=== PATIENT | male | born 1960 | race Caucasian/White ===

== ENCOUNTER 2020-01-27 15:13 | Emergency (ER) | payer SELFPAY ==
[2020-01-27] MEDS ORDERED: MORPHINE SULFATE 10 MG/ML INJ IV ONE ×2 (15:37→19:12)
[2020-01-27] MEDS ORDERED: ONDANSETRON HCL INJ/PF 4 MG/2 ML SDV IV ONE (15:37)
--- NOTE | 2020-01-27 15:49 | RADIOLOGY REPORT (SQ) ---
EXAM DESCRIPTION: CHEST SINGLE VIEW IMAGES COMPLETED DATE/TIME: 01/27/2020 3:41 pm REASON FOR STUDY: trauma COMPARISON: 07/01/2010 EXAM PARAMETERS: NUMBER OF VIEWS: One view. TECHNIQUE: Single frontal radiographic view of the chest acquired. RADIATION DOSE: NA LIMITATIONS: None. FINDINGS: LUNGS AND PLEURA: Hyperexpansion. No pneumothorax. No consolidation or effusion. MEDIASTINUM AND HILAR STRUCTURES: No masses. Contour normal. HEART AND VASCULAR STRUCTURES: Heart normal in size. Normal vasculature. BONES: No acute findings. HARDWARE: None in the chest. OTHER: No radiopaque foreign bodies. IMPRESSION: COPD. No pneumothorax. No radiopaque foreign bodies. TECHNICAL DOCUMENTATION: JOB ID: [id number] 2010 [employer]- All Rights Reserved Reading location - IP/workstation name: [email or web address]
--- NOTE | 2020-01-27 15:58 | ER Document Report ---
ED General - General Chief Complaint: Laceration Stated Complaint: CHEST LACERATION Time Seen by Provider: 01/27/20 15:32 TRAVEL OUTSIDE OF THE [place] IN LAST 30 DAYS: No - HPI Notes: Patient is a 60-year-old male with no significant past medical history who presents with trauma to his chest. 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 Patient states he was wearing a leather apron which he thinks protected him. He does have a laceration to his anterior chest midline. Patient states he has some shortness of breath. He denies any other trauma. He is unsure when his last tetanus shot was. - Related Data Allergies/Adverse Reactions: No Known Allergies Allergy (Unverified 08/08/13 11:06) Past Medical History - General Information source: Patient - Social History Smoking Status: Current Every Day Smoker Chew tobacco use (# tins/day): No Frequency of alcohol use: 2-3 beers daily Drug Abuse: None Family History: Reviewed & Not Pertinent Skin Medical History: Reports Hx Eczema - dishihydrotic - Immunizations Immunizations up to date: No Hx Diphtheria, Pertussis, Tetanus Vaccination: Yes Review of Systems - Review of Systems Notes: CONSTITUTIONAL: No fever, fatigue or weight loss. SKIN: No rash. Positive for laceration to anterior chest. HENT: No congestion, ear pain, or sore throat. EYES: No recent vision problems or eye pain. CARDIOVASCULAR: No chest pain or edema. RESPIRATORY: No cough, congestion, or wheezing. Positive for shortness of breath. GASTROINTESTINAL: No abdominal pain, nausea, vomiting, bloody stools or diarrhea. MUSCULOSKELETAL: No joint pain or swelling. NEUROLOGIC: No seizures. No headache, focal weakness or sensory changes. HEMATOLOGIC: No unusual bruising or bleeding. PSYCHIATRIC: No depression or anxiety. Physical Exam - Vital signs Vitals: Temp Pulse Resp BP Pulse Ox 98.5 F 95 19 168/83 H 97 01/27/20 15:36 01/27/20 15:36 01/27/20 15:36 01/27/20 15:36 01/27/20 15:36 - General General appearance: Anxious Notes: VITAL SIGNS: Within normal limits. GENERAL: No acute distress, non-toxic appearance. HEAD: Normal with no signs of head trauma. EYES: EOMI, conjunctiva normal, no discharge. EARS: Hearing grossly intact. NOSE: Normal. NECK: Normal range of motion, no tenderness, supple, no lymphadenopathy, No adenopathy, no JVD. CHEST: Clear breath sounds bilaterally. No wheezes, rales, or rhonchi. Laceration to anterior midline chest. Bleeding controlled. CARDIAC: Regular rate and rhythm. S1 and S2, without murmurs, gallops, or rubs. VASCULAR: No Edema. Peripheral pulses normal and equal in all extremities. ABDOMEN: Normal and soft with no tenderness, no masses or pulsatile masses. GENITOURINARY: Normal, No tenderness LYMPATHTIC: No lymphadenopathy noted. MUSCULOSKELETAL: Good range of motion of all major joints. Extremities without clubbing, cyanosis or edema. NEUROLOGICAL: Alert and oriented x 3. No focal sensory or strength deficits. Speech normal. Follows commands appropriately. PSYCHIATRIC: Normal Affect, judgement and mood. Course - Re-evaluation Re-evalutation: 01/27/20 16:34 Patient's x-ray is negative. Bleeding is controlled. He will be sent for CT of the chest to further evaluate the extent of the injuries. He is on room air and has normal vital signs. CT chest showed pulmonary contusion with possible tiny pneumothorax. I discussed with [facility] trauma who recommended that we talk to our surgeon here to see if they would keep him here for observation. I did discuss with our surgeon, Dr. Perez who evaluated the patient and stated that he would keep him overnight for observation. The patient declined. He states he feels fine and would like to go home. His states that she will watch him throughout the night and bring him back for any shortness of breath or worsening pain. I informed patient of the risks of leaving including worsening of the pneumothorax, shortness of breath, or . Patient verbalized understanding. His vitals have been normal throughout the ER stay. I sutured the laceration without difficulty. Please see procedure note. Patient was started on Augmentin to prevent infection after speaking with general surgery. His tetanus shot was updated. Patient was given strict return precautions including short ness of breath, fever, worsening pain, concern for infection. He was instructed to get the sutures removed in 8 to 10 days. 01/27/20 20:33 - Vital Signs Vital signs: Temp Pulse Resp BP Pulse Ox 98.6 F 84 19 133/86 H 97 01/27/20 20:07 01/27/20 20:07 01/27/20 20:07 01/27/20 20:07 01/27/20 20:07 - Laboratory Result Diagrams: 01/27/20 15:45 01/27/20 15:45 Laboratory results interpreted by me: 01/27/20 01/27/20 15:45 15:45 WBC 12.0 H Absolute Neuts (auto) 9.0 H Sodium 136.3 L Glucose 125 H - Diagnostic Test Radiology reviewed: Image reviewed, Reports reviewed - EKG Interpretation by Me EKG shows normal: Sinus rhythm Rate: Normal Crockett/QRS: Right axis deviation Additional EKG results interpreted by me: 01/27/20 17:07 Sinus rhythm at a rate of 82. QTc 430. No acute ST changes. No previous EKG available for comparison. Procedures - Laceration/Wound Repair Medial Chest Time completed: 20:10 Wound length (cm): 4 Wound's Depth, Shape: Linear Laceration pre-procedure: Sterile PPE donned, Sterile drapes applied, Shur-Clens applied Anesthetic type: 1% Lidocaine Volume Anesthetic (mLs): 5 Wound explored: Clean Wound Repaired With: Sutures Suture Size/Type: 4:0, Nylon Number of Sutures: 5 Layer Closure?: No Post-procedure wound care: Sterile dressing applied Notes: 01/27/20 20:37 Area was irrigated with normal saline and Shur-Clens. Patient tolerated procedure without complications. 01/27/20 20:37 Discharge - Discharge Clinical Impression: Laceration of chest wall Qualifiers: Encounter type: initial encounter Laterality: unspecified laterality Qualified Code(s): S21.119A - Laceration without foreign body of unspecified front wall of thorax without penetration into thoracic cavity, initial encounter Pulmonary contusion Qualifiers: Encounter type: initial encounter Laterality: unspecified laterality Qualified Code(s): S27.329A - Contusion of lung, unspecified, initial encounter Condition: Stable Disposition: AGAINST MEDICAL ADVICE Additional Instructions: You are leaving AGAINST MEDICAL ADVICE. You have a pulmonary contusion and possible tiny pneumothorax. Have your sutures removed in 8 to 10 days. Return to the ER for any redness, pain, fevers, chills. Take your antibiotics as prescribed. Return to the ER for any shortness of breath. Prescriptions: Amoxicillin/Potassium Clav [Augmentin 455-125 Tablet] 1 tab PO Q12 5 Days #10 tablet
[2020-01-27 16:02] LABS: ABSOLUTE BASOPHILS # (AUTO) 0.1 10^3/uL (0.0-0.2); ABSOLUTE EOSINOPHILS # (AUTO) 0.3 10^3/uL (0.0-0.6); ABSOLUTE LYMPHOCYTES (AUTO) 1.9 10^3/uL (0.5-4.7); ABSOLUTE MONOCYTES (AUTO) 0.7 10^3/uL (0.1-1.4); BASOPHILS % (AUTO) 0.8 % (0-2); EOSINOPHILS % (AUTO) 2.9 % (0-6); HEMATOCRIT 42.5 % (37.9-51.0); HEMOGLOBIN 13.9 g/dL (13.5-17.0); LYMPHOCYTES % (AUTO) 16.1 % (13-45); MEAN CORPUSCULAR HEMOGLOBIN 30.8 pg (27.0-33.4); MEAN CORPUSCULAR HGB CONC 32.6 g/dL (32.0-36.0); MEAN CORPUSCULAR VOLUME 94 fl (80-97); MONOCYTES % (AUTO) 5.5 % (3-13); PLATELET COUNT 326 10^3/uL (150-450); RED CELL DISTRIBUTION WIDTH 12.6 % (11.5-14.0); SEGMENTED NEUTROPHILS % (AUTO) 74.7 % (42-78); TOTAL CELLS COUNTED % (AUTO) 100 %
[2020-01-27 16:18] LABS: ALBUMIN 4.2 g/dL (3.5-5.0); ALKALINE PHOSPHATASE 79 U/L (38-126); ANION GAP 7 (5-19); ASPARTATE AMINO TRANSFERASE 31 U/L (17-59); BILIRUBIN,DIRECT 0.1 mg/dL (0.0-0.4); BILIRUBIN,TOTAL 0.3 mg/dL (0.2-1.3); BLOOD UREA NITROGEN 15 mg/dL (7-20); CALCIUM 9.6 mg/dL (8.4-10.2); CARBON DIOXIDE 25 mmol/L (22-30); CHLORIDE 104 mmol/L (98-107); GLUCOSE 125 mg/dL (75-110); POTASSIUM 4.7 mmol/L (3.6-5.0); TOTAL PROTEIN 7.2 g/dL (6.3-8.2)
[2020-01-27] MEDS ORDERED: NORMAL SALINE 1000 ML 1,000 ML IV ONE (16:52)
--- NOTE | 2020-01-27 17:13 | RADIOLOGY REPORT (SQ) ---
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 TECHNIQUE: CT scan of the chest performed using helical scanning technique with dynamic intravenous contrast injection. Images reviewed with lung, soft tissue and bone windows. Reconstructed coronal and sagittal MPR and MIP images reviewed. All images stored on PACS. All CT scanners at this facility use dose modulation, iterative reconstruction, and/or weight based d osing when appropriate to reduce radiation dose to as low as reasonably achievable (ALARA). [facility]: Dose Right [facility]: CareDose [facility]: Dose Right [facility]: Teradose 4D [facility]: Nitro CONTRAST TYPE AND DOSE: contrast/concentration: Isovue 350.00 mmol/ml; Total Contrast Delivered: 67. 4 ml; Total Saline Delivered: 20.0 ml RENAL FUNCTION: GFR > 60. RADIATION DOSE: CT Rad equipment meets quality standard of care and radiation dose reduction techniq ues were employed. CTDIvol: 6.7 mGy. DLP: 265 mGy-cm. . LIMITATIONS: None. FINDINGS: LUNGS AND PLEURA: There is wedge-shaped consolidation in the anterior aspect of the right upper lobe abutting the pericardium and right anterior pleural space. Tiny focus of gas anterior to the heart may represent a tiny anterior pneumothorax. No other consolidation. Background moderate p ulmonary emphysema. No pleural effusion or large pneumothorax. HILAR AND MEDIASTINAL STRUCTURES: No identified masses or abnormal nodes. HEART AND VASCULAR STRUCTURES: The heart has normal size. No pericardial effusion or pericardial thi ckening. HARDWARE: None in the chest. UPPER ABDOMEN: Bilobar hepatic cysts. Left renal cortical cysts. No upper abdominal adenopathy or f luid. THYROID AND OTHER SOFT TISSUES: There is a skin laceration with subcutaneous hematoma in the anterior soft tissues overlying the inferior sternum. No radiopaque foreign body. Several foci of gas consi stent with open injury. There is normal opacification of the right internal mammary artery with no e vidence of active extravasation. BONES: No underlying fracture. Sternum is intact. OTHER: No other significant finding. IMPRESSION: 1. Anterior chest wall laceration and subcutaneous hematoma overlying the inferior sternum. There is consolidation in the underlying right upper lobe of the lung, consistent with pulmonary contusion. Tiny focus of gas in the anterior pleural space may represent a tiny pneumothorax. No large pneumoth orax or pleural effusion. No evidence of vascular injury. No underlying fracture. COMMENT: Findings were discussed with doctor Nasir on 01/27/2020 at 1700 hours Eastern time TECHNICAL DOCUMENTATION: JOB ID: [id number] Quality ID # [id number]: Final reports with documentation of one or more dose reduction techniques (e.g., Au tomated exposure control, adjustment of the mA and/or kV according to patient size, use of iterative reconstruction technique) 2010 [employer]- All Rights Reserved Reading location - IP/workstation name: [email or web address]
[2020-01-27] MEDS ORDERED: LIDOCAINE 4%/TETRACAINE 0.5%/EPI 0.18% 5 ML TOPICAL SOLN TOP ONE (17:54)
[2020-01-27] MEDS ORDERED: DIPH/PERTUSS(ACELL)/TETANUS VAC/PF 0.5 ML SYR (>=10YO) IM ONE (18:24)
[2020-01-27] MEDS ORDERED: LIDOCAINE 1% INJ-PF (10 MG/ML) 30 ML SDV INJ ONE (18:25)
[2020-01-27] MEDS ORDERED: AMOXICILLIN TR/POT CLAVULANATE 875-125 MG TAB PO ONE (19:54)
[2020-01-27 20:09] VITALS: BP 133/86
--- NOTE | 2020-01-28 09:16 | EKG REPORT ---
SEVERITY:- BORDERLINE ECG - SINUS RHYTHM BORDERLINE RIGHT AXIS DEVIATION BORDERLINE T ABNORMALITIES, ANT-LAT LEADS : Confirmed by: Milo Enriquez 28-Jan-2020 09:16:12
== END 2020-01-27 20:07 | disposition left against medical advice (07) ==
LOC: ER 15:13
DX: S21.119A Laceration without foreign body of unspecified front wall of thorax without penetration into thoracic cavity, initial encounter (principal); S27.329A Contusion of lung, unspecified, initial encounter; R06.02 Shortness of breath; W20.8XXA Other cause of strike by thrown, projected or falling object, initial encounter; F17.200 Nicotine dependence, unspecified, uncomplicated; Z23 Encounter for immunization
CPT/HCPCS: 93005; 99285; 96361; 90471; 96374; 96375; 86900; 86901; 36415; 86850; 85025; 80053; 84484; 71045; 71260; 90715; 93010; 12002; J3490 ×3; J2270; J2405; J7030